=== PATIENT | female | born 1955 | race Two or more races ===

== ENCOUNTER 2025-04-18 21:24 | Inpatient (IN) | payer OTHER ==
[~2025-04-18] VITALS: Ht 165.1 cm; Wt 74.0 kg
--- NOTE | 2025-04-18 21:36 | ED.PDOC ---
Musculoskeletal HPI Comments 70-year-old female who came to ER via EMS for fall injury. About 30 minutes prior to arrival, patient was at home, at the bathroom, where she accidentally slipped on a bar of soap. Patient landed on her left knee, states she felt something pop, but she felt she was able to pop it back again. Noted swelling of her left knee. She denies any left knee pain, states it just feels "tight" REVIEW OF SYSTEMS: General: No fever, no chills, or fatigue HEENT: No sore throat, no earache, no congestion, no neck pain. Cardiac: No chest pain. No palpitations. Lungs: No shortness of breath, no cough. GI: No nausea, no vomiting, no diarrhea, no constipation, no abdominal pain : No dysuria, frequency, or urgency. No hematuria. Musculoskeletal: (+) left knee joint pain , (+) left knee joint swelling, no extremity edema. Skin: No rash, no itching. Neuro: No headache, no dizziness, no weakness PHYSICAL EXAM: General: Awake, alert and oriented. No acute distress. Skin: Skin in warm, dry and intact without rashes or lesions. HEENT: The head is normocephalic and atraumatic. Conjunctivae are clear without exudates or hemorrhage. Sclera is non-icteric. Neck: Normal range of motion. No JVD. Cardiac: Regular rate Respiratory: No signs of respiratory distress. No Stridor. Extremities: Left below-knee swollen, tender with effusion and bruising Neurological: The patient is awake, alert and oriented to person, place, and time with normal speech. Speech is clear. There is no facial asymmetry. Psychiatric: Appropriate mood and affect. Good judgement and insight. Chief Complaint: Fall injury Time Seen by MD: 21:35 Primary Care Provider: NONE Reviewed Notes: Chainer Notes Allergies: Coded Allergies: NO KNOWN ALLERGIES (Unverified , 09/16/11) Home Meds Reported Medications Enalapril Maleate (Enalapril Maleate) 5 Mg Tab, 1 TAB PO DAILY, #30 TAB 5 Refills 04/19/25 Aspirin (Aspir-Low) 81 Mg Tab, 81 MG PO DAILY for 30 Days, MG 04/19/25 Information Source: Patient, Emergency Med Personnel Mode of Arrival: EMS Location: Left Extremity Location: Knee Timing: Minutes Prehospital treatment: None Severity: Moderate Able to Move Extremity: No Bear Weight: No Pain: Moderate Mechanism: Blunt Trauma Circumstances: Fall, Accident Onset of Symptoms: After Trauma Symptoms: Swelling, Pain Associated signs and symptoms: Knee pain (Left) Past Medical History PAST MEDICAL HISTORY: HTN Surgical History: Cholecystectomy Family History Family History: No family hx of DM, No family hx of HTN Social History Smoker: Non-Smoker Alcohol: Denies ETOH Use Drugs: Denies Drug Use Lives In: Home Was a procedure done? Was a procedure done?: No Differential Diagnosis EXT Differential Diagnosis: Fracture, Sprain, Dislocation, Strain X-Ray, Labs, Meds, VS Vital Signs Date Time Temp Pulse Resp B/P (MAP) Pulse Ox O2 Delivery O2 Flow Rate FiO2 04/19/25 05:01 78 18 97 Room Air* 0 21 04/19/25 05:01 98.1 78 18 140/87 (104) 97 98.1 04/18/25 21:33 98.2 94 17 188/97 96 98.2 Lab Test 04/18/25 23:23 Range/Units White Blood Count 7.7 4.4-10.8 10^3/uL Red Blood Count 4.60 4.0-5.20 10^6/uL Hemoglobin 13.6 12.2-16.2 g/dL Hematocrit 40.2 36.0-46.0 % Mean Corpuscular Volume 87.6 80.0-100.0 fL Mean Corpuscular Hemoglobin 29.5 28.0-32.0 pg Mean Corpuscular Hemoglobin Concent 33.7 32.0-36.0 g/dL Red Cell Distribution Width 14.1 11.8-14.3 % Platelet Count 228 140-450 10^3/uL Mean Platelet Volume 8.1 6.9-10.8 fL Neutrophils (%) (Auto) 72.1 37.0-80.0 % Lymphocytes (%) (Auto) 19.9 10.0-50.0 % Monocytes (%) (Auto) 6.8 0.0-12.0 % Eosinophils (%) (Auto) 0.7 0.0-7.0 % Basophils (%) (Auto) 0.5 0.0-2.0 % Neutrophils # (Auto) 5.5 1.6-8.6 10 ^3/uL Lymphocytes # (Auto) 1.5 0.4-5.4 10 ^3/uL Monocytes # (Auto) 0.5 0-1.3 10 ^3/uL Eosinophils # (Auto) 0.1 0-0.8 10 ^3/uL Basophils # (Auto) 0 0-0.2 10 ^3/uL Nucleated Red Blood Cells 0.0 % Sodium Level 141 136-145 mmol/L Potassium Level 4.2 3.5-5.1 mmol/L Chloride Level 105 98-107 mmol/L Carbon Dioxide Level 27 20-31 mmol/L Anion Gap 9 5-15 Blood Urea Nitrogen 12 9-23 mg/dL Creatinine 0.74 0.550-1.02 mg/dL Glomerular Filtration Rate Calc 86 >90 mL/min BUN/Creatinine Ratio 16.2 10.0-20.0 Serum Glucose 138 H 74-106 mg/dL Calcium Level 9.6 8.7-10.4 mg/dL PROCEDURE(s): LKNE4 - L KNEE 4V XRAY REASON: fall left knee injury ORDER NUMBER(s): [id number], ACCESSION NUMBER(s): [id number] CLINICAL INDICATION: fall left knee injury TECHNIQUE: XY L KNEE 4V XRAY Comparison: None FINDINGS/IMPRESSION: : Moderately displaced and distracted transverse patellar fracture. Pronounced prepatellar soft tissue swelling and suprapatellar joint effusion. Time of 1ST Reevaluation: 21:31 Reevaluation 1ST: Unchanged Patient Education/Counseling: Need For Follow Up Family Education/Counseling: No Family Present Departure 1 Departure Time of Disposition: 03:39 Impression: Primary Impression: Displaced fracture of left patella Disposition: ADMITTED INPATIENT Condition: Stable Comments Patient admitted to hospitalist service for further treatment, evaluation and monitoring. Critical Care Note Critical Care Time?: No Stability Stability form required: No Heart Score Heart Score: Heart Score Response (Comments) Value History N/A 0 EKG N/A 0 Age N/A 0 Risk Factors N/A 0 Troponin N/A 0 Total 0 I personally scribed for CELSA HUBBARD MD ([email or web address]) on 04/18/25 at 21:36. Electronically submitted by Marvin Francis ([email or web address]). I personally scribed for CELSA HUBBARD MD ([email or web address]) on 04/19/25 at 00:33. Electronically submitted by Marvin Francis ([email or web address]). CELSA HUBBARD MD Apr 18, 2025 21:36
--- NOTE | 2025-04-18 23:43 | DVH ---
CLINICAL INDICATION: fall left knee injury TECHNIQUE: XY L KNEE 4V XRAY Comparison: None FINDINGS/IMPRESSION: : Moderately displaced and distracted transverse patellar fracture. Pronounced prepatellar soft tissue swelling and suprapatellar joint effusion.
[2025-04-18 23:44] LABS: Hematocrit 40.2 % (36.0-46.0); Hemoglobin 13.6 g/dL (12.2-16.2); Mean Corpuscular Hemoglobin 29.5 pg (28.0-32.0); Mean Corpuscular Volume 87.6 fL (80.0-100.0); Nucleated Red Blood Cells % 0.0 %
[2025-04-18 23:53] LABS: Chloride 105 mmol/L (98-107); Potassium 4.2 mmol/L (3.5-5.1); Sodium 141 mmol/L (136-145)
[2025-04-18 23:54] LABS: Anion Gap 9 (5-15); Calcium 9.6 mg/dL (8.7-10.4); Carbon Dioxide 27 mmol/L (20-31)
[2025-04-18 23:59] LABS: BUN/Creatinine Ratio 16.2 (10.0-20.0); Blood Urea Nitrogen 12 mg/dL (9-23)
[2025-04-19] VITALS (7 sets, daily range): BP systolic 109–135; BP diastolic 62–87; PULSE 67–109; RESP 13–20; TEMP 97.9–99; O2SAT 95–99
[2025-04-19 00:04] LABS: Glucose 138 mg/dL (74-106)
[2025-04-19] MEDS: ACETAMINOPHEN 325 MG TAB PO ONE (01:45)
--- NOTE | 2025-04-19 07:16 | DVH ---
XY CHEST PORTABLE, HISTORY: PREOP COMPARISON: None None TECHNICAL DATA: 1 view of the chest was obtained. FINDINGS: Lines and tubes: None Cardiomediastinal silhouette: normal Pulmonary vasculature: normal Lung expansion: normal Lung airspace: normal Lung interstitium: normal Pleura: normal Pneumothorax: no Bones: Unremarkable Other: no IMPRESSION: No acute intrathoracic abnormality.
[2025-04-19 07:22] LABS: Hematocrit 36.0 % (36.0-46.0); Hemoglobin 12.0 g/dL (12.2-16.2); Mean Corpuscular Hemoglobin 29.4 pg (28.0-32.0); Mean Corpuscular Volume 88.4 fL (80.0-100.0); Nucleated Red Blood Cells % 0.0 %
[2025-04-19 07:31] LABS: INR 0.98 (0.9-1.15); Partial Thromboplastin Time 26.7 SEC (24.5-34.5); Prothrombin Time 10.4 sec (9.3-11.8)
[2025-04-19 07:36] LABS: Alanine Aminotransferase 17 U/L (7-40); Albumin 3.8 g/dL (3.2-4.8); Alkaline Phosphatase 87 U/L (46-116); Anion Gap 7 (5-15); BUN/Creatinine Ratio 20.9 (10.0-20.0); Blood Urea Nitrogen 14 mg/dL (9-23); Calcium 8.9 mg/dL (8.7-10.4); Carbon Dioxide 27 mmol/L (20-31); Glucose 97 mg/dL (74-106); Potassium 4.1 mmol/L (3.5-5.1); Sodium 142 mmol/L (136-145); Total Protein 6.4 g/dL (5.7-8.2)
[2025-04-19 07:37] LABS: Bilirubin, Total 0.4 mg/dL (0.2-1.0)
[2025-04-19 07:43] LABS: Chloride 108 mmol/L (98-107)
[2025-04-19] MEDS: SODIUM CHLORIDE 0.9% 500 ML IV ONE (08:06)
--- NOTE | 2025-04-19 08:35 | DVHHPRES ---
History of Present Illness Resident Creating Document: TAMAR POLANCO RESIDENT History of Present Illness History of Present Illness (HPI): Alexandra Jameson is a 70-year-old female with a past medical history significant for hypertension, brain tumor, dyslipidemia, and gastroesophageal reflux disease (GERD), who presented with complaints of pain and swelling in her left knee following a mechanical fall. The patient reports that the incident occurred at home while she was using the restroom; she slipped on soap that was on the floor, fell, and struck both knees. She states that after the fall, she was unable to stand and noticed that her left knee appeared displaced. Her daughter found her on the floor and called emergency medical services (EMS), who transported her to the hospital for further evaluation and management. Past Medical History (PMH): hypertension, brain tumor, dyslipidemia, and gastroesophageal reflux disease (GERD) Past Surgical History (PSH): Cholecystectomy, brain surgery for benign brain tumor Family history (FH): History of liver cancer in brother EtOH: Denies alcohol use Smoking /Vaping: Denies smoking Recreational Drugs: Denies recreational drug use Residence: Lives with daughter Home Medications: Enalapril Allergies: Contrast PCP: Dr. Dean Specialist relevant to admission: Orthopedics Review of Systems Review of Systems CONSTITUTIONAL: Fever, night sweats, weight loss, Lymphadenopathy, ecchymoses, fatigue: Negative DERMATOLOGIC: Rash, New/growing/changing skin lesions: Negative HEENT: Vision change, eye pain, Rhinorrhea, sinus pain, epistaxis, dysphagia, odynophagia, globus sensation, Change in hearing, tinnitus, vertigo, otalgia, Dental problems, oral ulcers or lesions: : Negative ENDOCRINE: Weight change, heat or cold intolerance, tremor, insomnia, neck pain or swelling, Polyuria, polydipsia, polyphagia, Abnormal hair growth, change in nails: Negative CARDIOVASCULAR: Chest pain, palpitations, syncope, Edema, cyanosis, claudication, Orthopnea, paroxysmal nocturnal dyspnea: Negative PULMONARY: Shortness of breath, dyspnea with exertion, Cough, hemoptysis, wheezing, chest pain : Negative GI: Nausea, vomiting, diarrhea, melena, hematochezia, Change in appetite, abdominal pain, change in bowel habits or stools: Negative : Dysuria, frequency, urgency, Urinary incontinence, hematuria, foamy urine, nocturia, Change in libido, erectile dysfunction, Change in menses, dysmenorrhea, dyspaerunia, pelvic pain: : Negative MUSCULOSKELETAL: Complains of swelling and pressure in the left knee NEUROLOGIC: Headache, scotoma, Change in smell or taste, change in facial muscles, Muscle weakness, paresthesias, anesthesia, Ataxia, change in speech: Negative PSYCHIATRIC: Depression, anxiety, hallucinations, katie, suicidal/homicidal thoughts, Binging, purging: Negative Allergies: Coded Allergies: NO KNOWN ALLERGIES (Unverified , 09/16/11) Medications Current Medications Medications Dose Ordered Sig/Laura Route Start Time Stop Time Status Last Admin Dose Admin Acetaminophen 650 mg Q6HP PRN PO 04/19/25 06:30 Exam Vital Signs Vital Signs Date Time Temp Pulse Resp B/P (MAP) Pulse Ox O2 Delivery O2 Flow Rate FiO2 04/19/25 05:01 78 18 97 Room Air* 0 21 04/19/25 05:01 98.1 140/87 (104) 98.1 Exam General Appearance: Alert, Oriented X3, Cooperative, No acute distress HEENT: Atraumatic, PERRLA, EOMI, Mucous membrane moist/pink Respiratory: Clear to auscultation, Normal air movement Cardiovascular: Regular rate, Normal S1, Normal S2, No murmurs, no chest wall tenderness Abdominal: Normal bowel sounds, Soft, No tenderness, No hepatospenomegaly, No masses Extremities: Nonpitting edema the left knee with contusion, nontender Skin: No rashes, No breakdown, No significant lesion Neuro: Normal gait, Normal speech, Strength at 5/5 X4 ext, Normal tone, Sensation intact, Cranial nerves 3-12 NL, Reflexes 2+ Psych/Mental Status: Mental status NL, Mood NL Labs/Xrays Labs Test 04/19/25 06:50 Range/Units White Blood Count 6.0 4.4-10.8 10^3/uL Red Blood Count 4.07 4.0-5.20 10^6/uL Hemoglobin 12.0 L 12.2-16.2 g/dL Hematocrit 36.0 # 36.0-46.0 % Mean Corpuscular Volume 88.4 80.0-100.0 fL Mean Corpuscular Hemoglobin 29.4 28.0-32.0 pg Mean Corpuscular Hemoglobin Concent 33.3 32.0-36.0 g/dL Red Cell Distribution Width 14.0 11.8-14.3 % Platelet Count 219 140-450 10^3/uL Mean Platelet Volume 8.1 6.9-10.8 fL Neutrophils (%) (Auto) 65.9 37.0-80.0 % Lymphocytes (%) (Auto) 25.5 10.0-50.0 % Monocytes (%) (Auto) 7.5 0.0-12.0 % Eosinophils (%) (Auto) 0.7 0.0-7.0 % Basophils (%) (Auto) 0.4 0.0-2.0 % Neutrophils # (Auto) 4.0 1.6-8.6 10 ^3/uL Lymphocytes # (Auto) 1.5 0.4-5.4 10 ^3/uL Monocytes # (Auto) 0.5 0-1.3 10 ^3/uL Eosinophils # (Auto) 0 0-0.8 10 ^3/uL Basophils # (Auto) 0 0-0.2 10 ^3/uL Nucleated Red Blood Cells 0.0 % Prothrombin Time 10.4 9.3-11.8 sec Prothrombin Time INR 0.98 0.9-1.15 Activated Partial Thromboplast Time 26.7 24.5-34.5 SEC D-Dimer, Quantitative 2.04 H 0.0-0.49 mg/L FEU Sodium Level 142 136-145 mmol/L Potassium Level 4.1 3.5-5.1 mmol/L Chloride Level 108 H 98-107 mmol/L Carbon Dioxide Level 27 20-31 mmol/L Anion Gap 7 5-15 Blood Urea Nitrogen 14 9-23 mg/dL Creatinine 0.67 0.550-1.02 mg/dL Glomerular Filtration Rate Calc 93 >90 mL/min BUN/Creatinine Ratio 20.9 H 10.0-20.0 Serum Glucose 97 74-106 mg/dL Calcium Level 8.9 8.7-10.4 mg/dL Total Bilirubin 0.4 0.2-1.0 mg/dL Aspartate Amino Transferase (AST) 16 13-40 U/L Alanine Aminotransferase (ALT) 17 7-40 U/L Alkaline Phosphatase 87 46-116 U/L B-Type Natriuretic Peptide 26.39 0-100 pg/mL Total Protein 6.4 5.7-8.2 g/dL Albumin 3.8 3.2-4.8 g/dL SEPSIS Sepsis Screen Date sepsis recognized/suspect: Apr 19, 2025 Time Sepsis recognized/suspect: 0506 Recent Procedure: No On Antibiotic Therapy: No Respiratory Rate >20: No Heart Rate >90: No Temp<36 C (96.8 F) or >38.3 C: No SBP <90 or MAP <65 mmHG: No New Acute Mental Status Change: No Is the patient on CPAP, BIPAP,: No Physician Orders Admit (04/19/25 06:17) Allergies (04/19/25 06:17) Code Status (04/19/25 06:17) Condition: Fair (04/19/25 06:17) Acetaminophen Tablet (Tylenol Tablet) (04/19/25 06:30) Fall Risk Precautions In Place QSHIFT (04/19/25 06:17) Npo (Nothing By Mouth) Diet (04/19/25 Breakfast) Sodium Chloride 0.9% (04/19/25 06:30) *Consult Dr. Neri Pena (04/19/25 06:25) Chest Portable (04/19/25 06:43) Urinalysis (04/19/25 07:34) Bilat Lower Dvt (04/19/25 07:34) Vital Signs Date Time Temp Pulse Resp B/P (MAP) Pulse Ox O2 Delivery O2 Flow Rate FiO2 04/19/25 05:01 78 18 97 Room Air* 0 21 04/19/25 05:01 98.1 78 18 140/87 (104) 97 98.1 Laboratory Tests Test 04/18/25 23:23 04/19/25 06:50 White Blood Count 7.7 10^3/uL (4.4-10.8) 6.0 10^3/uL (4.4-10.8) Medications Medications Dose Ordered Sig/Laura Route Start Time Stop Time Status Last Admin Dose Admin Acetaminophen 650 mg ONCE ONCE PO 04/19/25 01:45 04/19/25 01:46 DC 04/19/25 01:45 650 MG Sodium Chloride 500 ml @ 70 mls/hr Q7H9M ONCE IV 04/19/25 06:30 04/19/25 13:38 04/19/25 08:06 70 MLS/HR Assessment/Plan Assessment/Plan Assessment and plan # Displaced transverse patellar fracture of the left knee - Post mechanical fall - Immobilization - Orthopedic consult - Pain medications - Preop chest x-ray, PT INR # Hypertensive crisis - Enalapril - Monitor in-hospital blood pressure levels # Rule out DVT - Elevated D-dimer - Bilateral DVT ultrasound - Lovenox held due to possible surgery # Dyslipidemia - Monitor lipid panel - Outpatient follow-up with PCP on discharge # GERD - IV Protonix - Outpatient follow-up with PCP on discharge # History of benign brain tumor - Tumor surgically removed 2 years back - Outpatient follow-up with PCP on discharge PUD prophylaxis: protonix 40mg DVT prophylaxis: brisk movement. Barriers to discharge: Medical diagnosis and management in progress. Patient lives with family. Independent for ADL. PCP: Dr. Dean Specialist Relevant To Admission: Orthopedics Case discussed with Dr. Mascorro. Code Status: Full Code. Complex patient care discussion needed. Spend total 35 minutes for bedside assessment, case discussion and management. Plan discussed with: Patient My Orders Orders - TAMAR POLANCO Procedure Category Date Status Time Admit ADMIT 04/19/25 Transmitted 06:17 Allergies SAMANTHA 04/19/25 In Process 06:17 Code Status CODE 04/19/25 Transmitted 06:17 Condition: Fair SAMANTHA 04/19/25 In Process 06:17 Acetaminophen Tablet PHA 04/19/25 In Process (Tylenol Tablet) 06:30 Fall Risk Precautions SAMANTHA 04/19/[address] 06:17 Npo (Nothing By DIET 04/19/25 Transmitted Mouth) Diet Breakfast Sodium Chloride 0.9% PHA 04/19/25 In Process 06:30 *Consult Dr[address] He CONS 04/19/25 Transmitted Becky 06:25 Chest Portable XY 04/19/25 Resulted 06:43 Date of Service: Apr 19, 2025 Billing Provider: BURKE MASCORRO MD Common Visit Codes: [id number] INP/OBS CARE (HIGH) Secondary Visit Codes: [id number] CARE PLAN 30 MINUTES TAMAR POLANCO Apr 19, 2025 08:35
--- NOTE | 2025-04-19 09:15 | DVH ---
CLINICAL HISTORY: rule out dvt, elevated ddimer TECHNIQUE: Color and duplex doppler imagine of the bilateral lower extremity veins was performed. Ves jeremy compression and augmentation if possible was also performed. COMPARISON: None FINDINGS: Right Lower Extremity: Right common femoral vein: Normal compressibility and flow. Right superficial femoral vein: Normal compressibility and flow. Right popliteal vein: Normal compressibility and flow. Proximal calf veins demonstrate flow. Left Lower Extremity: Left common femoral vein: Normal compressibility and flow. Left superficial femoral vein: Normal compressibility and flow. Left popliteal vein: Normal compressibility and flow. Proximal calf veins demonstrate flow. IMPRESSION: NO SONOGRAPHIC EVIDENCE FOR DEEP VENOUS THROMBOSIS IN THE BILATERAL LOWER EXTREMITY VEINS.
[2025-04-19] MEDS: PANTOPRAZOLE 40 MG/10 ML VIAL INJ IV ONE (09:19)
[2025-04-19] MEDS ORDERED: ENOXAPARIN SOD 40 MG/0.4 ML SYRINGE SC SCH (10:00)
[2025-04-19] MEDS ORDERED: ASPI-543 PO (12:05)
[2025-04-19] MEDS ORDERED: ENAL5TAB22 PO (12:05)
[2025-04-19 14:18] LABS: Urine Protein, UAD Negative (Negative)
--- NOTE | 2025-04-19 15:27 | DVHINCON2 ---
Date of service: Apr 19, 2025 Referring Physician ED Reason for Consultation Left patella fracture History of Present Illness 70-year-old female with a past medical history significant for hypertension, brain tumor, dyslipidemia, and gastroesophageal reflux disease (GERD), who presented with complaints of pain and swelling in her left knee following a mechanical fall. The patient reports that the incident occurred at home while she was using the restroom; she slipped on soap that was on the floor, fell, and struck both knees. She states that after the fall, she was unable to stand and noticed that her left knee appeared displaced. Her daughter found her on the floor and called emergency medical services (EMS), who transported her to the hospital for further evaluation and management. X-rays revealed displaced patella fracture for which orthopedic consultation was requested. Patient is normally independent in all activities of daily living. Past Medical History (PMH): hypertension, brain tumor, dyslipidemia, and gastroesophageal reflux disease (GERD) Past Surgical History (PSH): Cholecystectomy, brain surgery for benign brain tumor Family history (FH): History of liver cancer in brother EtOH: Denies alcohol use Smoking /Vaping: Denies smoking Recreational Drugs: Denies recreational drug use Residence: Lives with daughter Home Medications: Enalapril Allergies: Contrast PCP: Dr. Dean Specialist relevant to admission: Orthopedics Family History: Hypertension G8 MOTHER Allergies: Coded Allergies: NO KNOWN ALLERGIES (Unverified , 09/16/11) Home Meds Reported Medications Enalapril Maleate (Enalapril Maleate) 5 Mg Tab, 1 TAB PO DAILY, #30 TAB 5 Refills 04/19/25 Aspirin (Aspir-Low) 81 Mg Tab, 81 MG PO DAILY for 30 Days, MG 04/19/25 Current Medications Current Medications Medications (Trade) Dose Ordered Sig/Laura Route PRN Reason Start Time Stop Time Status Last Admin Enoxaparin Sodium (Lovenox) 40 mg DAILY SC 04/19/25 10:00 04/19/25 07:37 DC Acetaminophen (Tylenol Tablet) 650 mg Q6HP PRN PO PAIN SCALE 1-3 OR TEMP>100.4 04/19/25 06:30 Review of Systems Negative on 10 point review except as above Vital Signs Vital Signs Date Time Temp Pulse Resp B/P (MAP) Pulse Ox O2 Delivery O2 Flow Rate FiO2 04/19/25 11:44 67 20 99 Room Air* 0 21 9/20/25 11:30 97.9 110/62 (78) 97.9 Physical Exam Well-developed well-nourished female in no acute distress Alert and oriented x4 Skin intact left knee Positive effusion and edema. Positive ecchymosis. Tender to palpation over the patella with a palpable gap No calf tenderness or edema Distally neurovascularly intact X-rays of the left knee reveal a displaced comminuted left patella fracture Labs/Diagnostic Data Labs Test 04/19/25 13:00 04/19/25 06:50 Range/Units Urine Color Light-yellow Yellow Urine Clarity Clear Clear Urine pH 7.0 5.0-9.0 Urine Specific [place] 1.015 1.001-1.035 Urine Protein Negative Negative Urine Ketones Negative Negative Urine Blood Negative Negative /uL Urine Nitrite Negative Negative Urine Bilirubin Negative Negative Urine Urobilinogen Normal Negative mg/dL Urine Leukocyte Esterase 1+ Negative /uL Urine RBC 1 0 - 4 /hpf Urine Microscopic WBC 8 H 0-5 /HPF Urine Squamous Epithelial Cells Few <5 /hpf Urine Bacteria None seen None Seen /hpf Urine Glucose Normal Normal mg/dL White Blood Count 6.0 4.4-10.8 10^3/uL Red Blood Count 4.07 4.0-5.20 10^6/uL Hemoglobin 12.0 L 12.2-16.2 g/dL Hematocrit 36.0 # 36.0-46.0 % Mean Corpuscular Volume 88.4 80.0-100.0 fL Mean Corpuscular Hemoglobin 29.4 28.0-32.0 pg Mean Corpuscular Hemoglobin Concent 33.3 32.0-36.0 g/dL Red Cell Distribution Width 14.0 11.8-14.3 % Platelet Count 219 140-450 10^3/uL Mean Platelet Volume 8.1 6.9-10.8 fL Neutrophils (%) (Auto) 65.9 37.0-80.0 % Lymphocytes (%) (Auto) 25.5 10.0-50.0 % Monocytes (%) (Auto) 7.5 0.0-12.0 % Eosinophils (%) (Auto) 0.7 0.0-7.0 % Basophils (%) (Auto) 0.4 0.0-2.0 % Neutrophils # (Auto) 4.0 1.6-8.6 10 ^3/uL Lymphocytes # (Auto) 1.5 0.4-5.4 10 ^3/uL Monocytes # (Auto) 0.5 0-1.3 10 ^3/uL Eosinophils # (Auto) 0 0-0.8 10 ^3/uL Basophils # (Auto) 0 0-0.2 10 ^3/uL Nucleated Red Blood Cells 0.0 % Prothrombin Time 10.4 9.3-11.8 sec Prothrombin Time INR 0.98 0.9-1.15 Activated Partial Thromboplast Time 26.7 24.5-34.5 SEC D-Dimer, Quantitative 2.04 H 0.0-0.49 mg/L FEU Sodium Level 142 136-145 mmol/L Potassium Level 4.1 3.5-5.1 mmol/L Chloride Level 108 H 98-107 mmol/L Carbon Dioxide Level 27 20-31 mmol/L Anion Gap 7 5-15 Blood Urea Nitrogen 14 9-23 mg/dL Creatinine 0.67 0.550-1.02 mg/dL Glomerular Filtration Rate Calc 93 >90 mL/min BUN/Creatinine Ratio 20.9 H 10.0-20.0 Serum Glucose 97 74-106 mg/dL Calcium Level 8.9 8.7-10.4 mg/dL Total Bilirubin 0.4 0.2-1.0 mg/dL Aspartate Amino Transferase (AST) 16 13-40 U/L Alanine Aminotransferase (ALT) 17 7-40 U/L Alkaline Phosphatase 87 46-116 U/L B-Type Natriuretic Peptide 26.39 0-100 pg/mL Total Protein 6.4 5.7-8.2 g/dL Albumin 3.8 3.2-4.8 g/dL Assessment Acute displaced comminuted left patella fracture Plan/Recommendation The plan is for open reduction internal fixation with a possible partial patellectomy I explained the diagnosis, prognosis, treatment options and risks which include but are not limited to infection, bleeding, chronic stiffness, chronic weakness, nerve injury, DVT, PE. The patient understood and agreed to proceed. All questions answered. NPO after midnight. Ancef preop. Plan discussed with: Patient RIO MARAVILLA MD Apr 19, 2025 15:27
[2025-04-19] MEDS ORDERED: HYDROcodone-ACET 5/325MG TAB PO PRN (18:00)
--- NOTE | 2025-04-19 18:02 | DVHPN2 ---
Subjective Fell injuring knee Changes from previous H/P or p: Changes Objective Vitals Vital Signs Date Time Temp Pulse Resp B/P (MAP) Pulse Ox O2 Delivery O2 Flow Rate FiO2 04/19/25 13:00 97.9 72 20 109/78 (88) 99 97.9 04/19/25 11:44 Room Air* 0 21 General Appearance: Alert, Oriented X3, Cooperative, No acute distress Lungs: Clear to auscultation, Normal air movement Cardiovascular: Regular rate, Normal S1 Abdomen: Normal bowel sounds, Soft, No tenderness Extremities: No edema Medications Current Medications Medications Dose Ordered Sig/Laura Route Start Time Stop Time Status Last Admin Dose Admin Acetaminophen 650 mg Q6HP PRN PO 04/19/25 06:30 Laboratory Results Laboratory Tests 04/19/25 06:50 Chemistry Test 04/18/25 23:23 04/19/25 06:50 Calcium Level 9.6 mg/dL (8.7-10.4) 8.9 mg/dL (8.7-10.4) Albumin 3.8 g/dL (3.2-4.8) Total Protein 6.4 g/dL (5.7-8.2) Coagulation Test 04/19/25 06:50 Prothrombin Time 10.4 sec (9.3-11.8) Prothrombin Time INR 0.98 (0.9-1.15) Activated Partial Thromboplast Time 26.7 SEC (24.5-34.5) D-Dimer, Quantitative 2.04 mg/L FEU (0.0-0.49) H Cardiac Markers Test 04/19/25 06:50 B-Type Natriuretic Peptide 26.39 pg/mL (0-100) LFT Test 04/19/25 06:50 Alanine Aminotransferase (ALT) 17 U/L (7-40) Alkaline Phosphatase 87 U/L (46-116) Aspartate Amino Transferase (AST) 16 U/L (13-40) Total Bilirubin 0.4 mg/dL (0.2-1.0) Urinalysis Test 04/19/25 13:00 Urine Color Light-yellow (Yellow) Urine Clarity Clear (Clear) Urine pH 7.0 (5.0-9.0) Urine Specific [place] 1.015 (1.001-1.035) Urine Protein Negative (Negative) Urine Ketones Negative (Negative) Urine Blood Negative /uL (Negative) Urine Nitrite Negative (Negative) Urine Bilirubin Negative (Negative) Urine Urobilinogen Normal mg/dL (Negative) Urine Leukocyte Esterase 1+ /uL (Negative) Urine RBC 1 /hpf (0 - 4) Urine Microscopic WBC 8 /HPF (0-5) H Urine Squamous Epithelial Cells Few /hpf (<5) Urine Bacteria None seen /hpf (None Seen) Urine Glucose Normal mg/dL (Normal) Assessment/Plan Assessment/Plan Acute displaced comminuted left patella fracture HTN Mixed hyperlipidemia GERD PLAN: Surgery for tomorrow IV fluids Pain control Lovenox Protonix Full code Plan discussed with: Patient Date of Service: Apr 19, 2025 Billing Provider: AGNES MERCER MD Common Visit Codes: NOT BILLABLE AGNES MERCER MD Apr 19, 2025 18:02
[2025-04-19] MEDS: LACTATED RINGER'S 1,000 ML IV SCH (18:22)
[2025-04-20] VITALS (8 sets, daily range): BP systolic 120–173; BP diastolic 57–103; PULSE 70–99; RESP 16–22; TEMP 97.4–98.6; O2SAT 93–97
[2025-04-20 06:23] LABS: Anion Gap 7 (5-15); Carbon Dioxide 27 mmol/L (20-31); Potassium 4.0 mmol/L (3.5-5.1); Sodium 143 mmol/L (136-145)
[2025-04-20 06:29] LABS: BUN/Creatinine Ratio 17.2 (10.0-20.0); Blood Urea Nitrogen 11 mg/dL (9-23); Glucose 98 mg/dL (74-106)
[2025-04-20 06:30] LABS: Magnesium 2.0 mg/dL (1.6-2.6)
[2025-04-20 06:42] LABS: Calcium 8.6 mg/dL (8.7-10.4); Chloride 109 mmol/L (98-107)
[2025-04-20] MEDS: ACETAMINOPHEN 325 MG TAB PO PRN (08:48)
--- NOTE | 2025-04-20 09:42 | ECG ---
[facility] Test Date: 2025-04-19 Test Time: 22:21:32 Pat Name: NARENDRA ABRAHAM Department: Room: 0290 B Gender: F Crane Engineer: ek : [id number] Requested By: RIO MARAVILLA Order Number: [id number] Reading MD: Pablo Levin Measurements Intervals [place] Rate: 91 P: 56 VA: 135 QRS: 72 QRSD: 114 T: 25 QT: 356 QTc: 439 Interpretive Statements Sinus rhythm Incomplete right bundle branch block Electronically Signed On 04-21-2025 18:30:54 PDT by Pablo Levin Please click the below link to view image of tracing.
[2025-04-20] MEDS ORDERED: ceFAZolin 2 GM/D5W50ml 50 ML IV ONE (13:51)
[2025-04-20] MEDS ORDERED: ONDANSETRON HCL 4 MG/2 ML VIAL ONE (14:06)
[2025-04-20] MEDS ORDERED: PROPOFOL 10 MG/ML 20 ML IV ONE (14:06)
[2025-04-20] MEDS ORDERED: LIDOCAINE 1% INJ PF 5ML AMP ONE (14:06)
[2025-04-20] MEDS ORDERED: KETOROLAC TROMETH 30 MG/ML 1ML VIAL ONE (14:06)
[2025-04-20] MEDS ORDERED: GLYCOPYRROLATE 0.2 MG/ML 1ML VIAL ONE (14:06)
--- NOTE | 2025-04-20 14:28 | DVHPN2 ---
Subjective No new complaints Scheduled for surgery today Changes from previous H/P or p: Changes Objective Vitals Vital Signs Date Time Temp Pulse Resp B/P (MAP) Pulse Ox O2 Delivery O2 Flow Rate FiO2 04/20/25 13:00 98.5 70 18 144/67 (92) 95 98.5 04/19/25 20:00 Room Air* 0 21 Intake/Output Intake and Output 04/20/25 07:00 Intake Total 900 ml Output Total 500 ml Balance 400 ml Intake Oral 900 ml Output Urine Total 500 ml # Voids 4 General Appearance: Alert, Oriented X3, Cooperative, No acute distress Lungs: Clear to auscultation, Normal air movement Cardiovascular: Regular rate, Normal S1 Abdomen: Normal bowel sounds, Soft, No tenderness Extremities: No edema Medications Current Medications Medications Dose Ordered Sig/Laura Route Start Time Stop Time Status Last Admin Dose Admin Acetaminophen 650 mg Q6HP PRN PO 04/19/25 06:30 04/20/25 08:48 650 MG Lactated Ringer's 1,000 ml @ 75 mls/hr [id number] IV 04/19/25 18:00 04/20/25 07:20 75 MLS/HR Acetaminophen/ Hydrocodone Bitart 1 tab Q6HPRN PRN PO 04/19/25 18:00 Laboratory Results Laboratory Tests 04/19/25 06:50 04/20/25 04:39 Chemistry Test 04/20/25 04:39 Calcium Level 8.6 mg/dL (8.7-10.4) L Magnesium Level 2.0 mg/dL (1.6-2.6) Urinalysis Test 04/19/25 13:00 Urine Color Light-yellow (Yellow) Urine Clarity Clear (Clear) Urine pH 7.0 (5.0-9.0) Urine Specific [place] 1.015 (1.001-1.035) Urine Protein Negative (Negative) Urine Ketones Negative (Negative) Urine Blood Negative /uL (Negative) Urine Nitrite Negative (Negative) Urine Bilirubin Negative (Negative) Urine Urobilinogen Normal mg/dL (Negative) Urine Leukocyte Esterase 1+ /uL (Negative) Urine RBC 1 /hpf (0 - 4) Urine Microscopic WBC 8 /HPF (0-5) H Urine Squamous Epithelial Cells Few /hpf (<5) Urine Bacteria None seen /hpf (None Seen) Urine Glucose Normal mg/dL (Normal) Assessment/Plan Assessment/Plan Acute displaced comminuted left patella fracture HTN Mixed hyperlipidemia GERD PLAN: Surgery for tomorrow IV fluids Pain control Lovenox Protonix Full code 04/20/2025: Continue current management pending surgery Monitor closely Plan discussed with: Patient My Orders Orders - AGNES MERCER MD Procedure Category Date Status Time Lactated Ringer's PHA 04/19/25 In Process 18:00 Hydrocodone-Acet PHA 04/19/25 In Process 5/325mg Tab ([place] 18:00 Date of Service: Apr 20, 2025 Billing Provider: AGNES MERCER MD Common Visit Codes: NOT BILLABLE AGNES MERCER MD Apr 20, 2025 14:28
--- NOTE | 2025-04-20 16:42 | DVHOP2 ---
Operative Report - 2 Report Details Date: 04/20/25 Preop Diagnosis: Left knee comminuted displaced patella fracture Postop Diagnosis: Left knee comminuted displaced patella fracture Surgeon: Billy Corbin MD Anesthesiologist: Kumar Castillo CRNA Anesthesia: Regional Implant: Arthrex patella plate and seven screws Consent: The patient was informed of the risks and benefits of the procedure. These include but are not limited to complications of anesthesia, postoperative infection, incomplete relief of symptoms, recurrence of symptoms, damage to bloo d vessels, nerves and tendons, deep venous thrombosis, pulmonary embolism and possible need for repeat surgery in the future. Complications: None Estimated Blood Loss: 20 cc Fluids: See anesthesia record Findings: Left knee comminuted displaced patella fracture Indications for Surgery: Unstable patella fracture Name of Procedure Performed Open reduction internal fixation left patella fracture with excision of comminuted fragments, C-arm fluoroscopy Procedure Details Procedure Details: Patient was brought to the operating room and given spinal anesthetic then placed on the table in supine position. Preop patient received IV Ancef. Tourniquet was applied to the left thigh. Left lower extremity was prepped and draped in sterile fashion. Surgical time-out was performed verifying patient, laterality, and procedure. Extremity was elevated, exsanguinated with Esmarch and tourniquet inflated to 250 mmHg. Midline incision was made. I then used a Bovie to dissect the subcutaneous tissue off of the underlying patella and extensor. I sharply excised damage periosteum at the fracture edges. I did elevate periosteum proximally and distally to facilitate placement of the plate. I sharply excised three different fragments at the lateral aspect of the knee shelling them out with the Bovie. I used a curette and rongeur to remove fracture hematoma. I irrigated the joint with normal saline bulb syringe. I reduced the fracture and used tenaculum to hold it in place and adjusted the tenaculum was as needed based on C-arm fluoroscopy confirming anatomic reduction of the articular surface. I then passed two longitudinal K-wires for further temporary fixation. I then brought up the triangle Arthrex patella plate and fixed it proximally and distally with olive pins. I then used the tower and drilled proximally measuring depth off of the drill placed a locking screw in similar fashion I placed a locking screw distally I checked each time to make sure the length was good using C-arm fluoroscopy. I placed another proximal and the distal screw then I removed the longitudinal K-wires and tenaculum and placed two additional screws proximally one additional screw distally. One of the screws was found to be long and had to be changed. I obtained multiple C- arm views confirming fracture reduction and hardware placement. I irrigated the wound with normal saline bulb syringe. I repaired the retinaculum medially and laterally with 1. Ethibond interrupted [id number]. I closed the deep subcutaneous tissue with 0 Vicryl and superficial subcutaneous tissue with 2-0 Vicryl and skin with bo. The wound was dressed sterilely and knee immobilizer applied. Patient tolerated the procedure well was brought to recovery room in stable condition. Condition Stable Disposition Still a Patient BILLY CORBIN MD Apr 20, 2025 16:42
[2025-04-20] MEDS ORDERED: ONDANSETRON HCL 4 MG/2 ML VIAL IV PRN ×2 (16:45→17:00)
[2025-04-20] MEDS ORDERED: HYDROcodone-ACET 10/325MG TAB PO PRN (16:45)
[2025-04-20] MEDS ORDERED: NALOXONE HCL 0.4 MG/ML VIAL IV PRN (17:00)
[2025-04-20] MEDS ORDERED: HYDROmorphone HCL 2 MG/ML VL/or syr IV PRN (17:00)
[2025-04-20] MEDS ORDERED: hydrALAZINE HCL 20 MG/ML VL IV PRN (17:00)
[2025-04-20] MEDS ORDERED: fentaNYL CITRATE 100 MCG/2 ML VL IV PRN (17:00)
[2025-04-20] MEDS ORDERED: FLUMAZENIL 0.1 MG/ML INJ 10ML MDV IV PRN (17:00)
--- NOTE | 2025-04-20 17:47 | DVH ---
C-ARM FLUOROSCOPY: PROCEDURE: Intraoperative fluoroscopy FLUOROSCOPY TIME: 26.6 seconds DAP: 1.18 mgy FINDINGS: Spot intraoperative C arm radiographs submitted on separate report IMPRESSION: 1. Please refer to surgical report for detailed findings.
--- NOTE | 2025-04-20 17:48 | DVH ---
EXAM: XY L KNEE 2V XRAY CLINICAL INDICATION: ORIF LT KNEE TECHNIQUE: XY L KNEE 2V XRAY FINDINGS/IMPRESSION: Please see surgical report for findings.
[2025-04-20] MEDS: ceFAZolin 2 GM/D5W50ml 50 ML IV SCH (22:46)
[2025-04-21] VITALS (8 sets, daily range): BP systolic 122–133; BP diastolic 57–80; PULSE 76–103; RESP 16–18; TEMP 95.5–98.5; O2SAT 16–97
[2025-04-21] MEDS ORDERED: KETAMINE 50mg/ML 1ml syringe IV ONE (13:18)
[2025-04-21] MEDS ORDERED: PHENYLEPHRINE INJ 10 MG/ML 10ML VIAL IV ONE (13:19)
--- NOTE | 2025-04-21 13:33 | DVHPN2 ---
Subjective No new complaints Scheduled for surgery today Changes from previous H/P or p: Changes Objective Vitals Vital Signs Date Time Temp Pulse Resp B/P (MAP) Pulse Ox O2 Delivery O2 Flow Rate FiO2 04/21/25 12:47 98.2 89 18 122/74 (90) 95 98.2 04/20/25 20:00 Room Air* 0 21 Intake/Output Intake and Output 04/21/25 06:59 Intake Total 570 ml Balance 570 ml Intake Oral 520 ml IV Total 50 ml # Voids 7 # Bowel Movements 1 General Appearance: Alert, Oriented X3, Cooperative, No acute distress Lungs: Clear to auscultation, Normal air movement Cardiovascular: Regular rate, Normal S1 Abdomen: Normal bowel sounds, Soft, No tenderness Extremities: No edema Medications Current Medications Medications Dose Ordered Sig/Laura Route Start Time Stop Time Status Last Admin Dose Admin Acetaminophen 650 mg Q6HP PRN PO 04/19/25 06:30 04/20/25 08:48 650 MG Lactated Ringer's 1,000 ml @ 75 mls/hr [id number] IV 04/19/25 18:00 04/21/25 09:37 75 MLS/HR Acetaminophen/ Hydrocodone Bitart 1 tab Q6HPRN PRN PO 04/19/25 18:00 Acetaminophen/ Hydrocodone Bitart 1 tab Q4HP PRN PO 04/20/25 16:45 Aspirin 81 mg BID PO 04/21/25 10:00 04/21/25 09:36 81 MG Ondansetron HCl 4 mg Q4HPRN PRN IV 04/20/25 16:45 Enalapril Maleate 5 mg DAILY PO 04/22/25 10:00 Laboratory Results Laboratory Tests 04/19/25 06:50 04/20/25 04:39 Urinalysis Test 04/19/25 13:00 Urine Color Light-yellow (Yellow) Urine Clarity Clear (Clear) Urine pH 7.0 (5.0-9.0) Urine Specific [place] 1.015 (1.001-1.035) Urine Protein Negative (Negative) Urine Ketones Negative (Negative) Urine Blood Negative /uL (Negative) Urine Nitrite Negative (Negative) Urine Bilirubin Negative (Negative) Urine Urobilinogen Normal mg/dL (Negative) Urine Leukocyte Esterase 1+ /uL (Negative) Urine RBC 1 /hpf (0 - 4) Urine Microscopic WBC 8 /HPF (0-5) H Urine Squamous Epithelial Cells Few /hpf (<5) Urine Bacteria None seen /hpf (None Seen) Urine Glucose Normal mg/dL (Normal) Assessment/Plan Assessment/Plan Acute displaced comminuted left patella fracture HTN Mixed hyperlipidemia GERD PLAN: Surgery for tomorrow IV fluids Pain control Lovenox Protonix Full code 04/20/2025: Continue current management pending surgery Monitor closely 04/21/25: Resume enalapril 5 mg qd PT Left knee brace DC planning for tomorrow Plan discussed with: Patient My Orders Orders - AGNES MERCER MD Procedure Category Date Status Time Cardiac DIET 04/21/25 Transmitted Diet-2gna,Lofat,Lochol Lunch Enalapril Tablet PHA 04/22/25 In Process (Vasotec Tablet) 10:00 Date of Service: Apr 21, 2025 Billing Provider: AGNES MERCER MD Common Visit Codes: NOT BILLABLE AGNES MERCER MD Apr 21, 2025 13:33
--- NOTE | 2025-04-21 19:06 | DVHPN2 ---
Progress Note Progress Note Progress Note Patient: Alexandra Martin Diagnosis: Left patella fracture, status post ORIF Subjective: Patient reports pain is well controlled. No new complaints or concerns at this time. Resting in bed during my interview, No distress. No concerns reported. Objective: Postoperative incision clean, dry, and intact. Neurovascular exam: grossly intact. Patient is compliant with straight leg brace. Participating in physical therapy; weight bearing as tolerated. Assessment: 70-year-old female with left patella fracture, status post open reduction and internal fixation. Patient progressing appropriately. Plan: Continue physical therapy, weight bearing as tolerated. Maintain straight leg brace as directed. Follow-up with orthopedics in 2 weeks from discharge. Pain management pwe hospitalist; pain currently well controlled. From orthopedic standpoint, patient is stable for discharge once cleared by PT and pain remains controlled. All questions addressed; patient in agreement with plan. Plan discussed with: Patient, Other (bedside nurse) Visit Coding Surgery Date of Service if different f: Apr 21, 2025 Billing Provider: ALANNAH CUBA Surgery Visit Codes: [id number] - INP CONSULT <55 MIN ALANNAH CUBA Apr 21, 2025 19:06
[2025-04-22 01:00] VITALS: BP 126/67; PULSE 86; RESP 18; TEMP 98.5; O2SAT 96
[2025-04-22 05:00] VITALS: BP 130/62; PULSE 81; RESP 19; TEMP 98.3; O2SAT 95
[2025-04-22 08:00] VITALS: PULSE 95; RESP 17; O2SAT 95
[2025-04-22 09:00] VITALS: BP 129/65; PULSE 77; RESP 17; TEMP 97.8; O2SAT 95
--- NOTE | 2025-04-22 09:34 | DVHDS2 ---
Discharge Summary Date of Admission Apr 19, 2025 at 06:17 Date of Discharge: Apr 22, 2025 Labs/Diagnostic Data: Laboratory Results Test 04/20/25 04:39 04/19/25 13:00 04/19/25 06:50 Sodium Level 143 mmol/L (136-145) Potassium Level 4.0 mmol/L (3.5-5.1) Chloride Level 109 mmol/L (98-107) Carbon Dioxide Level 27 mmol/L (20-31) Anion Gap 7 (5-15) Blood Urea Nitrogen 11 mg/dL (9-23) Creatinine 0.64 mg/dL (0.550-1.02) Glomerular Filtration Rate Calc 94 mL/min (>90) BUN/Creatinine Ratio 17.2 (10.0-20.0) Serum Glucose 98 mg/dL (74-106) Calcium Level 8.6 mg/dL (8.7-10.4) Magnesium Level 2.0 mg/dL (1.6-2.6) Urine Color Light-yellow (Yellow) Urine Clarity Clear (Clear) Urine pH 7.0 (5.0-9.0) Urine Specific [place] 1.015 (1.001-1.035) Urine Protein Negative (Negative) Urine Ketones Negative (Negative) Urine Blood Negative /uL (Negative) Urine Nitrite Negative (Negative) Urine Bilirubin Negative (Negative) Urine Urobilinogen Normal mg/dL (Negative) Urine Leukocyte Esterase 1+ /uL (Negative) Urine RBC 1 /hpf (0 - 4) Urine Microscopic WBC 8 /HPF (0-5) Urine Squamous Epithelial Cells Few /hpf (<5) Urine Bacteria None seen /hpf (None Seen) Urine Glucose Normal mg/dL (Normal) White Blood Count 6.0 10^3/uL (4.4-10.8) Red Blood Count 4.07 10^6/uL (4.0-5.20) Hemoglobin 12.0 g/dL (12.2-16.2) Hematocrit 36.0 % (36.0-46.0) Mean Corpuscular Volume 88.4 fL (80.0-100.0) Mean Corpuscular Hemoglobin 29.4 pg (28.0-32.0) Mean Corpuscular Hemoglobin Concent 33.3 g/dL (32.0-36.0) Red Cell Distribution Width 14.0 % (11.8-14.3) Platelet Count 219 10^3/uL (140-450) Mean Platelet Volume 8.1 fL (6.9-10.8) Neutrophils (%) (Auto) 65.9 % (37.0-80.0) Lymphocytes (%) (Auto) 25.5 % (10.0-50.0) Monocytes (%) (Auto) 7.5 % (0.0-12.0) Eosinophils (%) (Auto) 0.7 % (0.0-7.0) Basophils (%) (Auto) 0.4 % (0.0-2.0) Neutrophils # (Auto) 4.0 10 ^3/uL (1.6-8.6) Lymphocytes # (Auto) 1.5 10 ^3/uL (0.4-5.4) Monocytes # (Auto) 0.5 10 ^3/uL (0-1.3) Eosinophils # (Auto) 0 10 ^3/uL (0-0.8) Basophils # (Auto) 0 10 ^3/uL (0-0.2) Nucleated Red Blood Cells 0.0 % Prothrombin Time 10.4 sec (9.3-11.8) Prothrombin Time INR 0.98 (0.9-1.15) Activated Partial Thromboplast Time 26.7 SEC (24.5-34.5) D-Dimer, Quantitative 2.04 mg/L FEU (0.0-0.49) Total Bilirubin 0.4 mg/dL (0.2-1.0) Aspartate Amino Transferase (AST) 16 U/L (13-40) Alanine Aminotransferase (ALT) 17 U/L (7-40) Alkaline Phosphatase 87 U/L (46-116) B-Type Natriuretic Peptide 26.39 pg/mL (0-100) Total Protein 6.4 g/dL (5.7-8.2) Albumin 3.8 g/dL (3.2-4.8) Other Laboratory Tests 04/20/25 04:39 04/19/25 06:50 Brief Hx & Hospital Course: Final diagnoses: Acute displaced comminuted left patella fracture status post surgery Hypertension Mixed hyperlipidemia GERD 70-year-old female who was admitted for a fracture of the left patella due to a fall required surgery and has a done successfully yesterday Now she has a brace on her left knee She is doing well and ambulated She can be discharged home and follow up as an outpatient I offered her Martell but she said she can not take it, she wants to take Tylenol at home, she can also take ibuprofen with a it with food Follow up with Orthopedic surgery in 2 weeks Condition at Discharge: Stable Final Diagnosis/Problems List Left knee comminuted displaced patella fracture Hypertension Discharge Disposition: Home SNF Discharge Will this Physician continue t: No Discharge Instruct/Medications Diet: Cardiac 2g Na,low cholest Activity: No Restrictions, As Tolerated Follow Up/Referral: PCP as soon as possible Dr. Corbin in 2 weeks Medications: Tylenol and ibuprofen as needed Scheduled Aspirin (Aspir-Low), 81 MG PO DAILY, (Reported) Enalapril Maleate (Enalapril Maleate), 1 TAB PO DAILY, (Reported) Discharge Statement: "Patient was advised to return to the ER or call 911 if any headaches, dizziness, shortness of breath, chest pain, abdominal pain, bleeding, fevers, or worsening of medical condition. Patient was counseled about treatment plan, medications, possible side effects, patientverbalized understanding. All questions were answered to the best of my ability. This discharge took greater then 30 minutes in planning, reviewing documentation, counseling the patient, and discussing with other team members." DME: Diagnosis: postop patella orif ASSESSMENT ASSESSMENT Assessment Left knee comminuted displaced patella fracture Hypertension Date of Service: Apr 22, 2025 Billing Provider: AGNES MERCER MD Common Visit Codes: NOT BILLABLE AGNES MERCER MD Apr 22, 2025 09:34
[2025-04-22] MEDS: ENALAPRIL MALEATE 2.5 MG TAB PO SCH (09:55)
[2025-04-22 11:30] VITALS: BP 129/65; PULSE 78; RESP 18; TEMP 36.8
[2025-04-22 13:00] VITALS: BP 109/57; PULSE 72; RESP 16; TEMP 98.3; O2SAT 95
== END 2025-04-22 17:30 | disposition home health service (06) | DRG 516 ==
LOC: ER 21:24 → EDBD 21:24 → OVERFLOW 04-19 06:17 → WEST WING 04-19 06:25
PROVIDERS: ADMIT Internal Medicine Geriatric Medicine; ATTEND Internal Medicine Geriatric Medicine
PROC: 0QSF04Z Reposition Left Patella with Internal Fixation Device, Open Approach (ICD-10-PCS; principal; 2025-04-20 15:05)
DX: S82.042A Displaced comminuted fracture of left patella, initial encounter for closed fracture (principal); I16.9 Hypertensive crisis, unspecified; E78.2 Mixed hyperlipidemia; K21.9 Gastro-esophageal reflux disease without esophagitis; I10 Essential (primary) hypertension; Z80.0 Family history of malignant neoplasm of digestive organs; Z79.82 Long term (current) use of aspirin; Z79.899 Other long term (current) drug therapy; Z82.49 Family history of ischemic heart disease and other diseases of the circulatory system; Z86.011 Personal history of benign neoplasm of the brain; Z90.49 Acquired absence of other specified parts of digestive tract; Y93.89 Activity, other specified; Y99.8 Other external cause status; W01.198A Fall on same level from slipping, tripping and stumbling with subsequent striking against other object, initial encounter; Y92.009 Unspecified place in unspecified non-institutional (private) residence as the place of occurrence of the external cause
CPT/HCPCS: 36415; 71045; 73560; 73564; 76000; 80048; 80053; 81001; 83735; 83880; 85025; 85379; 85610; 85730; 86850; 86900; 86901; 93005; 93970; 96361; 96365; 97110; 97116; 97163; 97530; G0378; J1100; J1885; J2405; J2470; J2704